=== PATIENT | female | born 1965 | race Caucasian/White ===

== ENCOUNTER 2021-12-05 20:22 | Emergency (ER) | payer BC, OTHER ==
[~2021-12-05] VITALS: Ht 165.1 cm; Wt 86.3 kg
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
[2021-12-06] MEDS ORDERED: KETOROLAC 15 MG/ML VIAL. IVP ONE (04:00)
[2021-12-06] MEDS ORDERED: CONTRAST GIVEN. MC PRN (04:00)
[2021-12-06] MEDS ORDERED: DEXAMETHASONE SOD PHOS 20 MG/5 ML VIAL. IV ONE (04:00)
[2021-12-06] MEDS ORDERED: HYDROmorphone 2 MG/ML INJ. IVP ONE (04:00)
[2021-12-06 04:01] LABS: BILIRUBIN,URINE NEGATIVE (NEG); CLARITY,URINE CLEAR; COLOR,URINE YELLOW; NITRITE,URINE NEGATIVE (NEG); PROTEIN,URINE NEGATIVE (NEG-TRACE); UROBILINOGEN,URINE 0.2 mg/dL (0.2 mg/dL)
[2021-12-06 04:08] LABS: BACTERIA,URINE 0 /HPF (0-FEW); RBC,URINE 0 /HPF (0-2); WBC,URINE RARE /HPF (0-4)
[2021-12-06] MEDS ORDERED: IOHEXOL 300 MG/ML 100ML VIAL. IV ONE (04:30)
--- NOTE | 2021-12-06 04:45 | RAD ---
CT PELVIS W History: right low back pain and buttock pain Comparison: None. Technique: After administration of intravenous contrast, helical CT of the pelvis was performed. Chris nal and sagittal reconstructions were obtained. 75 mL of Isovue-370 were used. One or more of the fol lowing dose reduction techniques were utilized: Automated exposure control (AEC), Adjustment of mA an d/or kV according to patient size, Use of iterative reconstruction technique such as ASiR, CT scan do ne according to ALARA and image gently/image wisely Findings: Hepatic steatosis. Cholecystectomy. Visualized kidneys demonstrate no mass or hydronephrosis. No dila vijay large or small bowel. Colonic diverticulosis. Normal appendix. There is no free fluid. There is no mesenteric or retroperitoneal adenopathy. The abdominal aorta is normal in caliber. Mild aortoiliac atherosclerotic disease. Urinary bladder is decompressed. Hysterectomy. There is no pelvic or inguinal adenopathy. Degenerative changes of the spine. Moderate neural foraminal narrowing at L4-5 and L5-S1 Postsurgical changes of posterior depression and instrumentation at L3-4. IMPRESSION: 1. No acute findings. 2. Colonic diverticulosis. 3. Degenerative lumbar spondylosis with moderate neural foraminal narrowing at L4-5 and L5-S1. No sev ere spinal canal stenosis. Prior posterior decompression at L3-4. Electronically signed by: Enrique Gupta MD (12/06/2021 4:43 AM) [facility]
[2021-12-06] MEDS ORDERED: OXYC1TAB19 PO (05:07)
[2021-12-06] MEDS ORDERED: METH4TAB2 PO (05:07)
[2021-12-06 05:52] VITALS: BP 118/58
== END 2021-12-06 06:00 | disposition home or self-care (01) ==
LOC: ER 20:22
DX: M54.50 Low back pain, unspecified (principal); R10.31 Right lower quadrant pain; Z90.49 Acquired absence of other specified parts of digestive tract; Z90.710 Acquired absence of both cervix and uterus; Z98.51 Tubal ligation status
CPT/HCPCS: 72193; 81001; 96374; 96375; 99285; J1100; J1170; J1885

== ENCOUNTER → 2021-12-20 | Outpatient (CLI) | payer BC ==
[2021-12-06 05:52] VITALS: BP 118/58
[~2021-12-20] MED LIST: GADOTERATE 7.5 MMOL/15ML VIAL. IVP ONE; METH4TAB2 PO; OXYC1TAB19 PO
--- NOTE | 2021-12-20 16:27 | KCIC ---
MRI lumbar spine without and with contrast Contrast: 16 mL Clariscan gadolinium intravenous contrast. COMPARISON: CT abdomen and pelvis February 08, 2016 HISTORY: Lumbar radiculopathy. Alternating lower back pain and bilateral leg pain. FINDINGS: Slight lumbar scoliosis. Lumbar vertebral body height and alignment. No bone marrow edema. Postoperative changes L3 laminectomy, and separate left L5 laminotomy for presumed L5-S1 microdiscect maryellen, and placement of pedicle screws and rods at L3-L4 since prior imaging. Within the L3 laminectomy and posteriorly within the midline dorsal paraspinal soft tissues there is a loculated fluid collect ion within rim enhancement and surrounding edema this collection measures 18 mm craniocaudal by 13 mm AP by 21 mm transverse, there is no direct contact of the dural sac by the collection. Conus termina kassandra at the L1 vertebral level. Cauda equina is normal. There is no pathologic intradural contrast enh ancement. There is diffuse degenerative disc desiccation throughout the lumbar spine. Disc disease as described further below. L1-L2: Mild posterior disc height loss and mild disc bulge mildly deforms the ventral dural sac. Slig ht narrowing of the right neural foramen. No significant neural foraminal stenosis. No spinal canal s tenosis. Dural sac diameter 14 mm. L2-L3: Mild posterior disc height loss and mild disc bulge deforms the ventral dural sac. Facet hyper trophy. Slight narrowing of the right lateral recess. No significant neural foraminal stenosis. No sp inal canal stenosis. Dural sac diameter of 13 mm. L3-L4: There is mild enhancing scar tissue within the dorsal spinal canal at the laminectomy. Mild po sterior disc height loss and mild posterior disc enhancement which may be scar tissue from prior micr odiscectomy versus a mild enhancing disc annulus tear, there is no sizable disc bulge or herniation. No spinal canal stenosis. Dural sac diameter 14 mm. No neural foraminal stenosis. L4-L5: Mild disc bulge eccentric to the right. Facet hypertrophy and mild spurring. There is mild to moderate neural foraminal stenosis. There may be very mild left neural foraminal stenosis. No spinal canal stenosis or neural sac diameter 13 mm. L5-S1: Marked disc height loss present. From microdiscectomy, there is mild infiltrating nonmasslike soft tissue with mild contrast enhancement typical of scar tissue at the left L5 laminotomy and along the left dorsal, lateral and ventral epidural spinal canal mildly surrounding the left lateral dural sac and left S1 nerve root sleeve there is some exuberant scar tissue along the posterior disc annul us abutting the left S1 nerve roots at the lateral recess. Some recurrent disc bulge is also possible as some of the prominent posterior and left lateral discal tissue at the ventral spinal canal and le ft neural foramen has very limited contrast enhancement. Right neural foramen is patent. Left lateral disc ossified and facet spurring with moderate left neural foraminal stenosis. No spinal canal sten osis. Dural sac diameter 11 mm. IMPRESSION: 1. Postoperative change of L3 laminectomy and instrumentation with bilateral L3-L4 pedicle screws. Th ere is a loculated fluid collection at the laminectomy extending into the midline dorsal paraspinal t issues which does not contact the dural sac or enter the spinal canal. 2. Postoperative change left L5 laminotomy for L5-S1 microdiscectomy. There is prominent scar tissue along the posterior and left lateral disc annulus and within the left aspect of the spinal canal surr ounding the left lateral dural sac as well as surrounding the left S1 nerve root sleeve at the latera l recess as described above. 3. Lumbar disc disease and facet arthritis associated with neural foraminal stenoses as described abo ve. No spinal canal stenosis. Electronically signed by: Fabian Up MD (12/20/2021 4:24 PM) [facility]
== END ==
LOC: KCIC MRI 13:28
PROVIDERS: ATTEND Neurological Surgery
DX: M51.16 Intervertebral disc disorders with radiculopathy, lumbar region (principal); M47.896 Other spondylosis, lumbar region; M51.27 Other intervertebral disc displacement, lumbosacral region; M48.07 Spinal stenosis, lumbosacral region; M51.37 Other intervertebral disc degeneration, lumbosacral region; M46.07 Spinal enthesopathy, lumbosacral region; M48.8X6 Other specified spondylopathies, lumbar region; Z98.890 Other specified postprocedural states
CPT/HCPCS: 72158; A9575

== ENCOUNTER → 2021-12-28 | Outpatient (CLI) | payer BC ==
[2021-12-06 05:52] VITALS: BP 118/58
[~2021-12-28] MED LIST changes: +ACET325T9 PO; +DEXAMETHASONE PRES.FREE 10 MG/ML VIAL. ONE; -GADOTERATE 7.5 MMOL/15ML VIAL. IVP ONE; +HYDR-2765 PO; +IOHEXOL 180 MG/ML 10 ML VIAL. ONE; +MECL-75 PO; +MILK1TAB PO; +NAPR220C4 PO
--- NOTE | 2021-12-28 14:19 | PDOC1 ---
INITIAL PAIN CONSULT DATE OF SERVICE: DOS: DATE: 12/28/21 TIME: 14:13 CHIEF COMPLAINT: Chief Complaint: Low back and right lower extremity pain HISTORY OF PRESENT ILLNESS: 56-year-old female presents history of pain low back and right lower extremity for about 1 month after she sneezed while at home had significant pain in the low back and the right leg posterior gluteus posterior lateral thigh and anterior thigh anteromedial thigh into the lower leg at times also into the foot with a burning sensation and throbbing in the top of the right foot patient reports is worse with walking standing changing positions but also with prolonged sitting for greater than 15 to 20-minutes will exacerbate the pain as well. Patient describes it as sharp and throbbing shooting tingling changes during the day worse with activity standing or walking radiating to right lower extremity aching and cramping and burning patient reports it wakes her from sleep about 4-5 times a night does not affect her bowel bladder control but does affect her ability to walk significantly patient has had chiropractic treatment and is still ongoing also doing stretches and strengthening exercises from previous physical therapies in the past also is taking oxycodone hydrocodone and Tylenol all of which help only a small amount patient reports she did have epidural injections prior to lumbar surgery about 7 years ago which were not helpful prior to the surgery. Patient rates her disability rating 0-10 10 me the worst is a 7 with family home responsibilities and occupation self-care and life support activities 8 with recreation social activity and 10 with sexual behavior. He did have a MRI scan of the lumbar spine showing laminotomy and laminectomy changes with instrumentation the bilateral L3-4 pedicle screws postoperative changes L5 laminotomy prominent scar tissue along the posterior and left lateral disc annulus at L5-S1 with mild enhancing scar tissue at L3-4 with L4-5 mild disc eccentric to the right with mild to moderate neuroforaminal stenosis. Patient reports no loss of motor function of the right lower extremity but significant fatigability with standing walking again even for 10 to 15 minutes or so. Patient reports no bowel or bladder incontinence. PAST MEDICAL HISTORY: PMH: Dizziness, type 2 diabetes, hearing loss, kidney stone PREVIOUS SURGERIES: Past Surgical Hx: Hysterectomy, cholecystectomy, lumbar laminectomy with fusion, septoplasty CURRENT MEDICATIONS: Current Meds: Active Scripts Medications Dose Route/Sig Max Daily Dose Days Date Category Hydrocodone-Apap 7.5-325 (Hydrocodone Bit/Acetaminophen) 1 Tab Tablet 1 Tab PO PRN Q6HRS PRN 12/28/21 Reported Tylenol (Acetaminophen) 325 Mg Tablet 1-2 Tab PO QID 12/28/21 Reported Aleve (Naproxen Sodium) 220 Mg Capsule 220 Mg PO BID 12/28/21 Reported Meclizine Hcl 25 Mg Tablet 1 Tab PO QID 12/28/21 Reported Liver Complex Tablet (Milk Thistle/Nac/Dandel/Turmer) 1 Each Tablet 2 Each PO DAILY 12/28/21 Reported ALLERGIES; Allergies: Coded Allergies: [id number]-[id number] Reductase Inhibitor (Verified Allergy, Intermediate, 12/06/21) nut - unspecified (Verified Allergy, Intermediate, Hives, 12/28/21) FAMILY HISTORY: Family Hx: Diabetes, heart disease, thyroid cancer SOCIAL HISTORY: Social Hx: Patient drinks 1-2 alcoholic drinks a month smokes cigarettes approximately 1 pack a day continues to smoke for the past 38 years, does not use any illegal illicit or recreational drugs, is lives with her spouse and 2 children lives locally in [facility] currently is working from home for [employer] department. REVIEW OF SYSTEMS: ROS: Positive for those items mentioned in history of present illness, all systems a re reviewed, otherwise negative ,and are complete full and well-documented on patient's chart. PHYSICAL EXAM: VS: Blood pressure is 112/68 pulse 79 respirations 18 temperature 90.5 F height 5 feet 5 inches weight is 197 pounds. PE: PHYSICAL EXAMINATION: GENERAL: The patient is awake, alert, oriented, appropriate, very pleasant in demeanor HEENT: Shows normocephalic, atraumatic. Extraocular movements are intact and symmetrical. Oral cavity: Mucous membranes moist and pink. Dentition is intact. NECK: Shows anterior throat supple without palpable lymphadenopathy noted. Swallow reflex symmetrical. CHEST: Shows normal on inspection. Breath sounds are clear bilaterally, distant but no rales or rhonchi auscultated. HEART: Shows S1, S2 clear. No murmurs auscultated. ABDOMEN: Soft, nontender, nondistended. No palpable organomegaly is noted. BACK: Shows spine grossly in the midline. Normal-appearing cervical lordotic curvature. There is mildly increased thoracic kyphosis, some minor flattening of the lumbar lordotic curvature. Lumbar paraspinous muscles show symmetrical on inspection, on palpation shows some moderate tenderness diffusely throughout the upper, middle and lower distribution of the paraspinous muscles bilaterally and also into the lower thoracic paraspinous musculature, firm and tender, but without specific trigger points, without radiation of pain. The patient has good rotational motion of the lumbar spine, both laterally as well as extension and flexion without significant difficulty. No tenderness over the spinous processes, sacrum or sacroiliac regions. EXTREMITIES: Lower extremities show deep tendon reflexes 2+ in the patellar and tendo calcaneus tendons. Motor exam is 4 on a scale of 5 with right dorsiflexion, extension, quadriceps and hamstring flexion and 5/5 on the left. Peripheral pulses are 1+ posterior tibial. No peripheral edema is noted bilaterally. Lower extremities are warm and dry to touch, equal in color and appearance. Straight leg raise noted to be positive on the right about 45 degrees, left side is negative. Gaenslen's and Onur's maneuvers are negative bilaterally. The patient is able to stand, stand on her toes without significant difficulty or loss of balance walks with a slight favoring gait favoring the right lower extremity not use any assistive devices such as canes or walkers to ambulate however. SKIN: Shows warm and dry, good turgor. No edema. No sores, rashes or bruising throughout. IMPRESSION: Impression: 56-year-old female with approximate 1 month history of low back right lower extremity pain in a radicular fashion MRI scan lumbar spine as noted Type 2 diabetes Hearing loss Plan: Options were discussed with patient, including conservative medical management, physical therapies and interventional techniques. Patient would like to pursue interventional techniques. We discussed a lumbar epidural steroid injection using descriptions as well as anatomical models to describe the procedure. Risks were discussed including but not limited to: Bleeding, infection, possibility of epidural hematoma and subsequent neurological compromise, dural puncture, headaches, spinal cord and/or nerve damage, side effects of steroid medication, and poor results regarding pain control. Patient understands and wished to proceed. Patient will return to the clinic in approximately 2 weeks for follow-up, was counseled as to return appointment, activity level, and side effect to be aware of. Procedure is lumbar epidural steroid injection under local anesthetic using sterile prep and drape at the L4-5 level using C-arm fluoroscopic guidance in both AP and lateral views medications injected is 20 mg dexamethasone +10mL preservative-free normal saline and 2 mL contrast- condition at discharge is stable patient tolerated procedure well had no complications. CANDICE HUMPHREY MD Dec 28, 2021 14:19
--- NOTE | 2021-12-28 14:20 | PDOC4 ---
Procedure Note: ICD 10 Code: ICD 10 Code: M54.16 M51.36 M 96.1 Procedure Note: Patient was consented for lumbar epidural steroid injection with fluoroscopic guidance. Risks were discussed including but not limited to: Bleeding, infection, possibility of epidural hematoma and subsequent neurological compromise, dural puncture, headaches, spinal cord and/or nerve damage, side effects of steroid medication, and poor results regarding pain control. Patient understands and wished to proceed. Procedure is lumbar epidural steroid injection under local anesthetic using ster ile prep and drape at the L4-5 level using C-arm fluoroscopic guidance in both AP and lateral views medications injected is 20 mg dexamethasone +10mL preservative-free normal saline and 2 mL contrast- condition at discharge is stable patient tolerated procedure well had no complications. CANDICE HUMPHREY MD Dec 28, 2021 14:20
== END | disposition home or self-care (01) ==
LOC: PNCL 08:03
PROVIDERS: ATTEND Anesthesiology
DX: M51.16 Intervertebral disc disorders with radiculopathy, lumbar region (principal); M96.1 Postlaminectomy syndrome, not elsewhere classified; M79.604 Pain in right leg; E11.9 Type 2 diabetes mellitus without complications; F17.210 Nicotine dependence, cigarettes, uncomplicated; Z90.49 Acquired absence of other specified parts of digestive tract; Z90.710 Acquired absence of both cervix and uterus; Z98.890 Other specified postprocedural states; Z79.899 Other long term (current) drug therapy; Z82.49 Family history of ischemic heart disease and other diseases of the circulatory system; Z83.3 Family history of diabetes mellitus; Z88.8 Allergy status to other drugs, medicaments and biological substances; Z72.89 Other problems related to lifestyle
CPT/HCPCS: 62323; G0463; J1100; Q9965

== ENCOUNTER → 2022-01-30 | Outpatient (CLI) | payer BC ==
[~2022-01-30] MED LIST changes: -DEXAMETHASONE PRES.FREE 10 MG/ML VIAL. ONE; +methylPREDNISolone ACETATE 40 MG/ML VIAL. ONE; +methylPREDNISolone ACETATE 80 MG/ML VIAL. ONE
--- NOTE | 2022-01-30 08:41 | PDOC4 ---
Procedure Note: ICD 10 Code: ICD 10 Code: M54.16 M51.36 M 96.1 Procedure Note: Patient was consented for lumbar epidural steroid injection with fluoroscopic guidance. Risks were discussed including but not limited to: Bleeding, infection, possibility of epidural hematoma and subsequent neurological compromise, dural puncture, headaches, spinal cord and/or nerve damage, side effects of steroid medication, and poor results regarding pain control. Patient understands and wished to proceed. Procedure is lumbar epidural steroid injection under local anesthetic using ster ile prep and drape at the L4-5 level using C-arm fluoroscopic guidance in both AP and lateral views medications injected is 20 mg dexamethasone +10mL preservative-free normal saline and 2 mL contrast- condition at discharge is stable patient tolerated procedure well had no complications. CANDICE HUMPHREY MD Jan 30, 2022 08:41
--- NOTE | 2022-01-30 08:41 | PDOC ---
Progress Note - Pain Clinic Date of Service: DOS: DATE: 01/30/22 TIME: 08:37 Diagnosis: Dx: Lumbar radiculopathy with lumbar degenerative disease and lumbar postlaminectomy syndrome History or Present Illness: HPI: 56-year-old female returns for follow-up status post lumbar epidural steroid action x1. Patient reports about 90% improvement for the first 2 and half weeks now down to about 50% improved but still slightly better than that as well patient reports pain in the low back and into the right lower extremity posterio r gluteus lateral thigh anterior thigh medial thigh medial lower leg much improved after first injection patient reports he is sleeping better walking greater distances doing household activities work activities mostly working from home as she is able to elevate her right leg which helps significantly and we will continue to encourage her to do so patient asks for a note for work r egarding this and we will accommodate that as well on this visit is again. Patient reports pain is in the low back and right leg tingling and burning radiating aching sharp and shooting leg patient reports it returned gradually though after about 2 to 3 weeks very slowly but is not still back to baseline patient reports a 10 on scale 10 is worse over the past week 7-8 on average 5-6 its least and is a 7 today. Patient reports no bowel or bladder incontinence no loss of motor function again patient was doing much better with increased activity standing walking changing positions and sleeping much better. Patient reports no motor deficits,, but some fatigue feeling in the right lower extremity with ambulation. Physical Exam: VS: Blood pressure is 120/61 pulse 73 respirations 16 temperature is 98.4 F, weight is 1 9 3 pounds. PE: PHYSICAL EXAMINATION: GENERAL: The patient is awake, alert, oriented, appropriate, very pleasant in demeanor HEENT: Shows normocephalic, atraumatic. Extraocular movements are intact and symmetrical. Oral cavity: Mucous membranes moist and pink. Dentition is intact. NECK: Shows anterior throat supple without palpable lymphadenopathy noted. Swallow reflex symmetrical. CHEST: Shows normal on inspection. Breath sounds are clear bilaterally. HEART: Shows S1, S2 clear. No murmurs auscultated. ABDOMEN: Soft, nontender, nondistended. No palpable organomegaly is noted. BACK: Shows spine grossly in the midline. Normal-appearing cervical lordotic curvature. There is slightly increased thoracic kyphosis, some minor flattening of the lumbar lordotic curvature. Lumbar paraspinous muscles show symmetrical on inspection, on palpation shows some moderate tenderness diffusely throughout the upper, middle and lower distribution of the paraspinous muscles but without specific trigger points, without radiation of pain. The patient has good rotational motion of the lumbar spine, both laterally as well as extension and flexion without significant difficulty. EXTREMITIES: Lower extremities show deep tendon reflexes 2+ in the patellar and tendo calcaneus tendons. Motor exam is 4 on a scale of 5 with right dorsiflexion, extension, quadriceps and hamstring flexion and 5/5 on the left. Peripheral pulses are 1+ posterior tibial. No peripheral edema is noted bilaterally. Lower extremities are warm and dry to touch, equal in color and appearance. SKIN: Shows warm and dry, good turgor. No edema. No sores, rashes or bruising throughout. Procedure: Procedure: Options discussed with patient. Patient's old chart was reviewed as her current medication regimen updated current review of systems updated today as well. We will proceed with lumbar epidural steroid injection today with fluoroscopic guidance. Risks were discussed including but not limited to: Bleeding, infection, possibility of epidural hematoma and subsequent neurological compromise, dural puncture, headaches, spinal cord and/or nerve damage, side effects of steroid medication, and poor results regarding pain control. Patient understands and wished to proceed. Patient will return to the clinic in approximately 4 weeks for follow-up follow-up, was counseled as to return appointment, activity level, and side effects to be aware of. Medication Injected: Med Injected: Procedure is lumbar epidural steroid injection under local anesthetic using sterile prep and drape at the L4-5 level using C-arm fluoroscopic guidance in both AP and lateral views medications injected is 20 mg dexamethasone +10mL preservative-free normal saline and 2 mL contrast- condition at discharge is stable patient tolerated procedure well had no complications. Condition at discharge stable, paced tolerated the procedure well and had no complications. Condition at Discharge: Condition at Discharge: Condition at discharge is stable, patient tolerated the procedure well and had no complications. CANDICE HUMPHREY MD Jan 30, 2022 08:41
== END | disposition home or self-care (01) ==
LOC: PNCL 08:05
PROVIDERS: ATTEND Anesthesiology
DX: M51.16 Intervertebral disc disorders with radiculopathy, lumbar region (principal); M96.1 Postlaminectomy syndrome, not elsewhere classified; F17.210 Nicotine dependence, cigarettes, uncomplicated; Z72.89 Other problems related to lifestyle; Z88.8 Allergy status to other drugs, medicaments and biological substances; Z79.899 Other long term (current) drug therapy
CPT/HCPCS: 62323; J1030; J1040; Q9965

== ENCOUNTER → 2022-03-01 | Outpatient (CLI) | payer BC ==
[~2022-03-01] MED LIST changes: +DEXAMETHASONE PRES.FREE 10 MG/ML VIAL. ONE; -methylPREDNISolone ACETATE 40 MG/ML VIAL. ONE; -methylPREDNISolone ACETATE 80 MG/ML VIAL. ONE
--- NOTE | 2022-03-01 08:44 | PDOC ---
Progress Note - Pain Clinic Date of Service: DOS: DATE: 03/01/22 TIME: 08:41 Diagnosis: Dx: Lumbar radiculopathy with lumbar degenerative disease and lumbar postlaminectomy syndrome History or Present Illness: HPI: 56-year-old female returns for follow-up status post lumbar epidural steroid injection last seen January 30, 2022 patient did very well until she fell about 5 days ago and fractured her left wrist. Patient reports when she fell she had significant pain in the low back and now on the left side as opposed to the ri ght side in the lower extremity posterior gluteus posterior thigh lateral thigh anterior thigh medial thigh into the posterior calf with some tingling in the foot as well some on the right side also but much worse on the left side since her fall patient reports her pain is a 10 on scale 10 is worse over the past week 7-8 on average 4 to [place] is a 7 today patient was aching and shooting tingling burning stabbing again worse on the left side since the fall. Patient reports prior to that though she was doing very well with some of the pain returning only in the back but not into the lower extremities patient reports she is awaiting orthopedic consultation and has her left arm in a soft cast currently. Patient reports pain that awaken her from sleep at night worse with walking standing change positions difficulty sleeping especially patient previously was doing much better with distance walking doing household activities work activities sleeping much better until the fall several days ago. Patient reports no bowel or bladder incontinence. Physical Exam: VS: Blood pressure is 99/66 pulse 77 respirations 16 temperature 98.5 F weight is 185 pounds PE: PHYSICAL EXAMINATION: GENERAL: The patient is awake, alert, oriented, appropriate, very pleasant in demeanor HEENT: Shows normocephalic, atraumatic. Extraocular movements are intact and symmetrical. Oral cavity: Mucous membranes moist and pink. Dentition is intact. NECK: Shows anterior throat supple without palpable lymphadenopathy noted. Swallow reflex symmetrical. CHEST: Shows normal on inspection. Breath sounds are clear bilaterally, no rales rhonchi wheezes auscultated. HEART: Shows S1, S2 clear. No murmurs auscultated. ABDOMEN: Soft, nontender, nondistended. No palpable organomegaly is noted. BACK: Shows spine grossly in the midline. Normal-appearing cervical lordotic c urvature. There is slightly increased thoracic kyphosis, some flattening of the lumbar lordotic curvature. Lumbar paraspinous muscles show symmetrical on inspection, on palpation shows some moderate tenderness diffusely throughout the upper, middle and lower distribution of the paraspinous muscles, but without specific trigger points, without radiation of pain. The patient has good rotational motion of the lumbar spine, both laterally as well as extension and flexion without significant difficulty. EXTREMITIES: Lower extremities show deep tendon reflexes 2+ in the patellar and tendo calcaneus tendons. Motor exam is 4 on a scale of 5 with right dorsiflexion, extension, quadriceps and hamstring flexion and 5/5 on the left. Peripheral pulses are 1+ posterior tibial. No peripheral edema is noted bilaterally. Lower extremities are warm and dry. SKIN: Shows warm and dry, good turgor. No edema. No sores, rashes or bruising throughout. Procedure: Procedure: Options discussed with patient. Patient's chart was use her current medication regimen updated current review of systems updated today as well. We will proceed with a lumbar epidural steroid injection today with fluoroscopic guidance. Patient with new symptoms in the left lower extremity in a radicular pattern following L4-5 dermatomal distribution. Risks were discussed including but not limited to: Bleeding, infection, possibility of epidural hematoma and subsequent neurological compromise, dural puncture, headaches, spinal cord and/or nerve damage, side effects of steroid medication, and poor results regarding pain control. Patient understands and wished to proceed. Patient will return to clinic in approximately 4 weeks for follow-up, was counseled as to return appointment, activity level, and side effects to be aware of. Medication Injected: Med Injected: Procedure is lumbar epidural steroid injection under local anesthetic using sterile prep and drape at the L4-5 level using C-arm fluoroscopic guidance in both AP and lateral views medications injected is 20 mg dexamethasone +10mL preservative-free normal saline and 2 mL contrast- condition at discharge is stable patient tolerated procedure well had no complications. Condition at Discharge: Condition at Discharge: Condition at discharge is stable, patient tolerated the procedure well and had no complications. CANDICE HUMPHREY MD March 01, 2022 08:44
--- NOTE | 2022-03-01 08:45 | PDOC4 ---
Procedure Note: ICD 10 Code: ICD 10 Code: M54.16 M51.36 M96.1 Procedure Note: Patient was consented for lumbar epidural steroid injection with fluoroscopic guidance. Risks were discussed including but not limited to: Bleeding, infection, possibility of epidural hematoma and subsequent neurological compromise, dural puncture, headaches, spinal cord and/or nerve damage, side effects of steroid medication, and poor results regarding pain control. Patient understands and wished to proceed. Procedure is lumbar epidural steroid injection under local anesthetic using sterile prep and drape at the L4-5 level using C-arm fluoroscopic guidance in both AP and lateral views medications injected is 20 mg dexamethasone +10mL preservative-free normal saline and 2 mL contrast- condition at discharge is stable patient tolerated procedure well had no complications. CANDICE HUMPHREY MD March 01, 2022 08:45
== END | disposition home or self-care (01) ==
LOC: PNCL 07:50
PROVIDERS: ATTEND Anesthesiology
DX: M51.16 Intervertebral disc disorders with radiculopathy, lumbar region (principal); M96.1 Postlaminectomy syndrome, not elsewhere classified; F17.210 Nicotine dependence, cigarettes, uncomplicated; Z72.89 Other problems related to lifestyle; Z79.899 Other long term (current) drug therapy
CPT/HCPCS: 62323; J1100; Q9965

== ENCOUNTER → 2022-03-10 | Outpatient (CLI) | payer BC ==
[~2022-03-10] MED LIST changes: -DEXAMETHASONE PRES.FREE 10 MG/ML VIAL. ONE; -IOHEXOL 180 MG/ML 10 ML VIAL. ONE
--- NOTE | 2022-03-10 10:44 | KCIC ---
EXAMINATION: CT LEFT FOREARM WITHOUT IV CONTRAST CLINICAL HISTORY: Left forearm pain following fall approximately 2 weeks ago. History of prior wrist fractures. TECHNIQUE: Noncontrast serial axial images obtained through the left forearm with sagittal and ken l reconstructions. CT Dose Reduction Employed: One or more of the following individualized dose reduction techniques wer e utilized for this examination: 1. Automated exposure control 2. Adjustment of the mA and/or kV ac cording to patient size 3. Use of iterative reconstruction technique. COMPARISON: Left forearm radiographs 03/01/2022 FINDINGS: No evidence of acute radius or ulna fracture. No definitive evidence of acute carpal bone fracture, h owever, evaluation is limited by large [id number] images with larger slice thickness. Joint alignm ent maintained. Remote healed comminuted intra-articular distal radius fracture with residual heterogeneous mineraliz ation along several fracture planes. 3 small corticated ossicles/calcific densities adjacent to the u lnar styloid, likely related to remote trauma including ununited ulnar styloid fracture and/or TFCC i njury. Muscles and tendons unremarkable on limited evaluation. No subcutaneous edema. IMPRESSION: No evidence of acute radius or ulna fracture. If concerned for acute carpal bone fracture, dedicated wrist radiographs and/or CT wrist is recommended for further evaluation. Remote healed comminuted intra-articular distal radius fracture. Remote posttraumatic changes involving the distal ulna and/or TFCC as described. Electronically signed by: Serg Fierro DO (03/10/2022 10:42 AM) ERICK
== END ==
LOC: KCIC CT 09:03
PROVIDERS: ATTEND Orthopaedic Surgery Sports Medicine
DX: M79.632 Pain in left forearm (principal)
CPT/HCPCS: 73200